=== PATIENT | male | born 1995 | race Caucasian/White ===

== ENCOUNTER 2020-09-09 17:48 | Emergency (ER) | payer OTHER ==
[~2020-09-09] VITALS: Ht 172.7 cm; Wt 90.3 kg
[2020-09-09 17:54] VITALS: BP 146/86
--- NOTE | 2020-09-09 18:00 | NUR ---
BIGG JARRELL AT BEDSIDE
--- NOTE | 2020-09-09 18:00 | NUR ---
25 Y/O MALE C/O PAIN TO L THUMB S/P CHOPPING MEAT AT WORK AND CUT THE TIP OF HIS LEFT THUMB. CONTROLLED BLEEDING, +2 RADIAL PULSES AND CAP REFILL <3 SECONDS. PT STATES HE CUT R MIDDLE FINGER X2 WEEKS AGO WITH METAL SCRAP AND FINGER IS STILL SWOLLEN AND PAINFUL BUT INTACT. FULL ROM FOR R FINGERS BUT LIMITED ROM FOR L THUMB. PT RATES PAIN 6/10 THAT IS STABBING AND NONRADIATING. PT PUT LIQUID BANDAGE ON FINGER BUT DENIES TAKING ANYTHING FOR PAIN. PT DENIES N/V/SOB. PT IS A/O X4 WITH EVEN AND UNLABORED RESPIRATIONS. PT UNAWARE OF LAST TDAP VACCINE. NO PMH NKDA
[2020-09-09] MEDS ORDERED: KETOROLAC 30 MG/ML VIAL IM ONE (18:05)
[2020-09-09] MEDS ORDERED: BACITRACIN OINT 500 UNITS/GM PKT TP ONE (18:15)
[2020-09-09] MEDS ORDERED: IBUP-1842 PO (18:33)
--- NOTE | 2020-09-09 18:33 | NUR ---
applied bacitracin and dressing to left first digit without any issues
[2020-09-09] MEDS ORDERED: CEPH500C16 PO (18:53)
[2020-09-09 19:02] VITALS: BP 146/86
--- NOTE | 2020-09-09 19:03 | NUR ---
Patient discharged with v/s stable. Written and verbal after care instructions given and explained. Patient alert, oriented and verbalized understanding of instructions. Ambulatory with steady gait. All questions addressed prior to discharge. ID band removed. Patient advised to follow up with PMD. Rx of cephalexin and ibuprofen given. Patient educated on indication of medication including possible reaction and side effects. Opportunity to ask questions provided and answered.
== END 2020-09-09 19:03 | disposition home or self-care (01) ==
LOC: MED 17:48
DX: S61.012A Laceration without foreign body of left thumb without damage to nail, initial encounter (principal); Z79.899 Other long term (current) drug therapy; W45.8XXA Other foreign body or object entering through skin, initial encounter; Y93.89 Activity, other specified; Y92.89 Other specified places as the place of occurrence of the external cause; Y99.0 Civilian activity done for income or pay
CPT/HCPCS: 73130; 90471; 90715; 96372; 99283; J1885